=== PATIENT | female | born 1985 | race Hispanic/Latino ===

== ENCOUNTER 2020-07-12 07:34 | Outpatient (CLI) | payer OTHER ==
--- NOTE | 2020-07-12 08:04 | CT ---
Exam: Head CT without contrast HISTORY: Follow-up subdural hematoma. COMPARISON: 06/30/2020 and 06/29/2020 FINDINGS: Hemorrhage: No intraparenchymal hemorrhage or extra-axial hematoma. Brain parenchyma: Cortical blandon-white matter differentiation is preserved. No mass effect or midline shift. Basilar cisterns are patent. Ventricular system: Ventricles and sulci are patent and symmetric. Calvarium: Intact. Sinuses and mastoid air cells: Adequate aeration. IMPRESSION: No acute intracranial process. No evidence of intracranial hemorrhage.
== END 2020-07-12 07:35 | disposition home or self-care (01) ==
LOC: BICCT 07:34
PROVIDERS: ATTEND Neurological Surgery
DX: S06.5X9S Traumatic subdural hemorrhage with loss of consciousness of unspecified duration, sequela (principal)
CPT/HCPCS: 70450

== ENCOUNTER 2020-12-11 03:33 | Inpatient (IN) | payer OTHER, MEDICAID ==
[2020-12-11 05:26] VITALS: BMI 21.4
[2020-12-11] MEDS ORDERED: Ondansetron PF 4 MG/2 ML Vial IVP PRN (06:39)
[2020-12-11] MEDS ORDERED: hydrALAZINE 20 MG/ML VIAL SLOW IVP PRN (06:39)
[2020-12-11] MEDS ORDERED: Dextrose 50% Abboject 50 ML SYRINGE SLOW IVP PRN (06:39)
[2020-12-11] MEDS ORDERED: Dextrose 5% in Water 1,000 ML IV PRN (06:39)
[2020-12-11] MEDS ORDERED: Sodium Chloride 0.9% 1,000 ML IV SCH (06:45)
[2020-12-11] MEDS ORDERED: Potassium Chloride 40 MEQ in Sodium Chloride 0.9% 250 ML 250 ML IVPB SCH (07:30)
[2020-12-11] MEDS: Famotidine 20 MG TAB PO SCH ×2 (09:06→21:42)
[2020-12-11] MEDS: Acetaminophen 500 MG TAB PO PRN ×2 (11:05→21:41)
[2020-12-12] MEDS: Famotidine 20 MG TAB PO SCH (08:29)
[2020-12-12] MEDS: Acetaminophen 500 MG TAB PO PRN (10:56)
[2020-12-12 15:40] VITALS: BP 130/83; TEMP 98.1
== END 2020-12-12 16:23 | disposition home or self-care (01) | DRG 90 ==
LOC: CCU 04:45 → SJJU 21:07
PROVIDERS: ADMIT Specialist; ATTEND Specialist
DX: S06.0X9A Concussion with loss of consciousness of unspecified duration, initial encounter (principal); S00.03XA Contusion of scalp, initial encounter; Z20.822 Contact with and (suspected) exposure to COVID-19; F10.129 Alcohol abuse with intoxication, unspecified; S70.12XA Contusion of left thigh, initial encounter; S40.022A Contusion of left upper arm, initial encounter; S40.021A Contusion of right upper arm, initial encounter; R40.2212 Coma scale, best verbal response, none, at arrival to emergency department; R40.2352 Coma scale, best motor response, localizes pain, at arrival to emergency department; R40.2132 Coma scale, eyes open, to sound, at arrival to emergency department; Z87.820 Personal history of traumatic brain injury; V43.52XA Car driver injured in collision with other type car in traffic accident, initial encounter; Y92.410 Unspecified street and highway as the place of occurrence of the external cause
CPT/HCPCS: J3480; J7050